=== PATIENT | male | born 1980 | race Caucasian/White ===

== ENCOUNTER 2016-11-03 03:08 | Observation (INO) | payer SELFPAY ==
[2016-11-03 03:12] VITALS: RESP 20; TEMP 98
[2016-11-03] MEDS ORDERED: [UNRECOGNIZED DRUG - OTHER] IV SCH (03:45)
[2016-11-03] MEDS ORDERED: FOLIC ACID IV SCH (03:45)
[2016-11-03] MEDS ORDERED: THIAMINE IV SCH (03:45)
[2016-11-03] MEDS ORDERED: MULTIVITAMIN IV SCH (03:45)
[2016-11-03 04:12] LABS: HEMATOCRIT 39.6 % (35.0-51.0); MEAN CELL VOLUME 95.7 fl (80.0-94.0); MEAN CORPUSCULAR HEMOGLOBIN 32.9 pg (27.0-31.0); MEAN CORPUSCULAR HGB CONC 34.4 g/dL (33.0-37.0); RED CELL DISTRIBUTION WIDTH 12.8 % (11.5-14.5); WHITE BLOOD COUNT 10.3 K/uL (4.8-10.8)
[2016-11-03 04:14] LABS: CHLORIDE 104 mmol/L (98-107)
[2016-11-03 04:15] LABS: POTASSIUM 3.7 MMOL/L (3.6-5.0); SODIUM 144 mmol/l (132-148)
[2016-11-03 04:17] LABS: ALB/GLOB RATIO 1.5 (1.0-2.1); ALKALINE PHOSPHATASE 58 U/L (38-126); ALT/SGPT 51 U/L (21-72); AST/SGOT 45 U/L (17-59); BILIRUBIN,TOTAL 0.5 mg/dl (0.2-1.3); BLOOD UREA NITROGEN 8 mg/dl (9-20); CARBON DIOXIDE 24 mmol/L (22-30); GFR AFRICAN-AMERICAN > 60; GLUCOSE,RANDOM 122 mg/dL (75-110); TOTAL PROTEIN 7.8 G/DL (6.3-8.2)
[2016-11-03 04:18] LABS: CALCIUM 8.8 mg/dL (8.4-10.2)
[2016-11-03] MEDS ORDERED: TDAP Vaccine 0.5 mL Syr IM ONE (04:29)
[2016-11-03 04:36] LABS: ALCOHOL SERUM 311 mg/dl (0-10)
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
--- NOTE | 2016-11-03 07:21 | ED PDOC ---
- Laboratory Results Result Diagrams: 11/03/16 04:05 11/03/16 04:05 - ECG O2 Sat by Pulse Oximetry: 100 - Progress ED Course And Treament: Pt AAOX3, steady gait. Re-evaluation Time: 10:23 Condition: Improved Disposition - Clinical Impression Clinical Impression: Head injury, Alcohol intoxication, Scalp laceration - POA Present On Arrival: Falls Or Trauma - Disposition Disposition: Routine/Home Disposition Time: 10:23 Condition: IMPROVED Addendum Addendum: 11/03/16 07:[address] Pt [address] out [address] Pelayo pending sobriety.
--- NOTE | 2016-11-03 08:15 | CT ---
PROCEDURE: CT HEAD WITHOUT CONTRAST. HISTORY: Head Trauma, ETOH abuse COMPARISON: None available. TECHNIQUE: Axial computed tomography images were obtained through the head/brain without intravenous contrast. Radiation dose: Total exam DLP = 1355 mGy-cm. This CT exam was performed using one or more of the following dose reduction techniques: Automated exposure control, adjustment of the mA and/or kV according to patient size, and/or use of iterative reconstruction technique. FINDINGS: HEMORRHAGE: No intracranial hemorrhage. BRAIN: No mass effect or edema. No atrophy or chronic microvascular ischemic changes. VENTRICLES: Unremarkable. No hydrocephalus. CALVARIUM: Unremarkable. PARANASAL SINUSES: Unremarkable as visualized. No significant inflammatory changes. MASTOID AIR CELLS: Unremarkable as visualized. No inflammatory changes. OTHER FINDINGS: None. IMPRESSION: Normal CT of the Head.
--- NOTE | 2016-11-03 08:16 | CT ---
PROCEDURE: CT Cervical Spine without contrast HISTORY: <head injury> COMPARISON: None available. TECHNIQUE: Axial computed tomography images were obtained of the cervical spine without the use of intravenous contrast. Coronal and sagittal reformatted images were created and reviewed. Radiation dose: Total exam DLP = 1355 mGy-cm. This CT exam was performed using one or more of the following dose reduction techniques: Automated exposure control, adjustment of the mA and/or kV according to patient size, and/or use of iterative reconstruction technique. FINDINGS: VERTEBRAE: No fracture. Normal alignment. No destructive bony lesion. DISCS/SPINAL CANAL/NEURAL FORAMINA: No significant central canal or neural foraminal stenosis. Discs heights are grossly preserved. PARASPINAL SOFT TISSUES: Unremarkable. OTHER FINDINGS: None. IMPRESSION: Unremarkable CT of the cervical spine.
[2016-11-03 10:32] VITALS: BP 128/78; PULSE 78; O2SAT 98
== END 2016-11-03 10:54 | disposition home or self-care (01) ==
LOC: H.ER 03:08 → H.EROBSV 04:47
PROVIDERS: ADMIT Emergency Medicine; ATTEND Emergency Medicine
DX: S09.90XA Unspecified injury of head, initial encounter (principal); S01.01XA Laceration without foreign body of scalp, initial encounter; F10.129 Alcohol abuse with intoxication, unspecified; X99.0XXA Assault by sharp glass, initial encounter; Y93.9 Activity, unspecified; Y92.9 Unspecified place or not applicable; Y99.9 Unspecified external cause status
CPT/HCPCS: 12001; 70450; 72125; 80053; 82948; 85027; 99283; G0168; G0378; G0480

== ENCOUNTER 2016-11-10 13:26 | Emergency (ER) | payer OTHER ==
[2016-11-10 13:45] VITALS: BP 132/81; PULSE 81; RESP 20; TEMP 97; O2SAT 99
--- NOTE | 2016-11-10 13:56 | ED PDOC ---
HPI: Wound Care - HPI Time Seen by Provider: 11/10/16 13:34 Chief Complaint (Nursing): Suture/Staple Removal Chief Complaint (Provider): Staple remova - Placed 1 week ago, no pain History Per: Patient History Of Present Illness: Pt has 2 angel luis placed in ER 1 week ago. Reports improvement in pain, no drainage. Exam Limitations: no limitations Onset/Duration Of Symptoms: Days Current Symptoms Are (Timing): Better Past Medical History Reviewed: Historical Data, Nursing Documentation, Vital Signs Vital Signs: Last Vital Signs Temp 97.0 F L 11/10/16 13:43 Pulse 81 11/10/16 13:43 Resp 20 11/10/16 13:43 BP 132/81 11/10/16 13:43 Pulse Ox 99 11/10/16 13:43 - Medical History PMH: No Chronic Diseases - Surgical History Surgical History: No Surg Hx - Family History Family History: States: Unknown Family Hx - Living Arrangements Living Arrangements: With Family - Social History Current smoker - smoking cessation education provided: No Alcohol: None Drugs: Denies - Allergies Allergies/Adverse Reactions: Allergies Allergy/AdvReac Type Severity Reaction Status Date / Time No Known Allergies Allergy Verified 11/10/16 13:43 Review of Systems ROS Statement: Except As Marked, All Systems Reviewed And Found Negative Skin: Positive for: Other Physical Exam - Reviewed Nursing Documentation Reviewed: Yes Vital Signs Reviewed: Yes - Physical Exam Appears: Positive for: Well, Non-toxic, No Acute Distress Head Exam: Positive for: ATRAUMATIC, NORMAL INSPECTION, NORMOCEPHALIC Skin: Positive for: Warm. Negative for: Normal Color ((+) well healing laceration, right scalp, no erythema, no edema, no drainage, 2 angel luis intact. ) Eye Exam: Positive for: Normal appearance ENT: Positive for: Normal ENT Inspection Neck: Positive for: Normal, Painless ROM Respiratory: Negative for: Accessory Muscle Use Back: Positive for: Normal Inspection Extremity: Positive for: Normal ROM Neurologic/Psych: Positive for: Alert, production potter II-XII, Oriented - ECG O2 Sat by Pulse Oximetry: 99 Medical Decision Making Medical Decision Makin angel luis easily removed with staple remover. Well tolerated. No complications. Disposition - Clinical Impression Clinical Impression: Removal of staple - Patient ED Disposition Is Patient to be Admitted: No Counseled Patient/Family Regarding: Diagnosis, Need For Followup - Disposition Disposition: Routine/Home Disposition Time: 13:52 Condition: GOOD Instructions: Stitches Removal (ED)
== END 2016-11-10 13:57 | disposition home or self-care (01) ==
LOC: H.ER 13:26
DX: Z48.02 Encounter for removal of sutures (principal)